=== PATIENT | male | born 2000 | race African-American/Black ===

== ENCOUNTER 2023-06-26 18:59 | Emergency (ER) | payer OTHER ==
[~2023-06-26] VITALS: Ht 177.8 cm; Wt 81.8 kg
[2023-06-26 19:06] VITALS: TEMP 98
[2023-06-26] MEDS ORDERED: diphenhydrAMINE 25 MG CAP PO ONE (19:30)
[2023-06-26 19:39] VITALS: BP 110/79; PULSE 69
== END 2023-06-26 19:39 | disposition home or self-care (01) ==
LOC: COL.ER 18:59
DX: R21 Rash and other nonspecific skin eruption (principal)

== ENCOUNTER 2023-07-01 23:40 | Emergency (ER) | payer OTHER ==
[~2023-07-01] VITALS: Ht 177.8 cm; Wt 81.8 kg
[2023-07-01 23:57] VITALS: TEMP 98.9
[2023-07-02] MEDS ORDERED: Ondansetron 4 MG/2 ML VIAL IV ONE (00:15)
[2023-07-02] MEDS ORDERED: LR 1,000 ML IV ONE (00:15)
[2023-07-02] MEDS ORDERED: Morphine 4 MG/ML VIAL IV ONE (00:15)
[2023-07-02 00:59] LABS: HEMATOCRIT 48.9 % (42.0-52.0); HEMOGLOBIN 17.2 g/dl (13.5-18.0); MEAN CELL VOLUME 88 fl (80.0-100.0); MEAN CORPUSCULAR HEMOGLOBIN 31 pg (27-31); MEAN CORPUSCULAR HGB CONC 35 g/dl (33.0-37.0); MEAN PLATELET VOLUME 9.7 fl (7.4-10.4); PLATELET COUNT 190 K/mm3 (130-400); RED BLOOD COUNT 5.59 M/mm3 (4.20-5.60); REDCELL DISTRIBUTION WIDTH-CV 12.1 % (11.5-14.5)
[2023-07-02 01:20] LABS: ALBUMIN 4.4 gm/dL (3.5-5.0); C-REACTIVE PROTEIN 0.29 mg/dL (0.00-0.50); CALCIUM 9.2 mg/dL (8.4-10.2); CREATININE, serum 1.03 mg/dL (0.72-1.25); TOTAL PROTEIN 7.4 gm/dL (6.2-8.1)
[2023-07-02 01:30] LABS: BILIRUBIN,TOTAL 0.9 mg/dL (0.2-1.2)
[2023-07-02 01:37] LABS: BAND 9 % (0-10); LYMPHOCYTE 8 % (20.0-51.0); NEUTROPHILS 79 % (42.0-75.2); PLATELET ESTIMATE NORMAL (NORMAL)
[2023-07-02 01:43] LABS: URINE APPEARANCE CLEAR (CLEAR/HAZY); URINE BLOOD NEGATIVE (NEGATIVE); URINE COLOR Dark Yellow (YELLOW); URINE GLUCOSE NEGATIVE (NEGATIVE); URINE KETONE TRACE (NEGATIVE); URINE NITRATE NEGATIVE (NEGATIVE); URINE PROTEIN(semi-quant) NEGATIVE (NEGATIVE); URINE UROBILINOGEN 0.2 E.U/dL (0.2-1.0)
[2023-07-02 01:58] LABS: COLLECTION METHOD CLEAN CATCH
[2023-07-02] MEDS ORDERED: Iohexol 300 - 100 ML VIAL IV ONE (02:14)
[2023-07-02] MEDS ORDERED: NS 50 ML IV ONE (02:14)
[2023-07-02] MEDS ORDERED: ZOFRAN ODT4 MG PO (03:41)
[2023-07-02 04:05] VITALS: BP 134/74; PULSE 76
== END 2023-07-02 04:08 | disposition home or self-care (01) ==
LOC: COL.ER 23:40
PROVIDERS: Emergency Medicine
DX: R10.33 Periumbilical pain (principal); R11.2 Nausea with vomiting, unspecified
CPT/HCPCS: J2270; J2405; J7120; Q9967